=== PATIENT | male | born 1995 | race African-American/Black ===

== ENCOUNTER 2018-10-06 10:00 | Emergency (ER) | payer OTHER ==
[~2018-10-06] VITALS: Ht 170.2 cm; Wt 61.0 kg
[2018-10-06 11:07] VITALS: BP 114/70
== END 2018-10-06 12:51 | disposition home or self-care (01) ==
LOC: ER 10:00
DX: R05 Cough (principal)
CPT/HCPCS: 71045; 99283

== ENCOUNTER 2020-09-08 22:57 | Emergency (ER) | payer OTHER ==
[~2020-09-08] VITALS: Ht 170.2 cm; Wt 61.0 kg
[2020-09-09 02:18] VITALS: BP 121/60
== END 2020-09-09 02:19 | disposition home or self-care (01) ==
LOC: ER 22:57
DX: R00.2 Palpitations (principal); F12.10 Cannabis abuse, uncomplicated; K21.9 Gastro-esophageal reflux disease without esophagitis
CPT/HCPCS: 71045; 93005; 99283

== ENCOUNTER 2022-06-28 15:16 | Emergency (ER) | payer MEDICAID, OTHER ==
[~2022-06-28] VITALS: Ht 172.7 cm; Wt 75.0 kg
[2022-06-28] MEDS ORDERED: ACETAMINOPHEN 325MG TABLET PO ONE (18:45)
[2022-06-28] MEDS ORDERED: IBUPROFEN 400MG TABLET PO ONE (18:45)
[2022-06-28] MEDS ORDERED: ONDANSETRON 4MG ODT PO ONE (18:45)
[2022-06-28] MEDS ORDERED: MAGNESIUM/ALUMINUM HYDROXIDE/SIMETHICONE 30ML UDC PO ONE (18:45)
[2022-06-28 18:56] VITALS: BP 110/65
[2022-06-28] MEDS ORDERED: IBUP-2029 MT (19:58)
== END 2022-06-28 20:13 | disposition home or self-care (01) ==
LOC: ER 15:16
DX: R19.7 Diarrhea, unspecified (principal)
CPT/HCPCS: 99284; Q0162

== ENCOUNTER 2022-06-30 15:09 | Emergency (ER) | payer OTHER ==
[~2022-06-30] VITALS: Ht 170.2 cm; Wt 66.0 kg
[~2022-06-30 15:09] MED LIST: IBUP-2029 MT
[2022-06-30 21:26] LABS: HEMATOCRIT. 54.5 % (42.0-52.0); HEMOGLOBIN. 17.1 g/dL (14.0-18.0); MEAN CORPUSCULAR HEMOGLOBIN 26.8 pg (28.0-32.0); MEAN CORPUSCULAR VOLUME 85.5 fL (80.0-94.0); MEAN PLATELET VOLUME 9.7 fl (7.4-10.4); PLATELET 200 x1000/uL (130-400); RED BLOOD CELL COUNT 6.37 mill/uL (4.7-6.1); RED CELL DISTRIBUTION WIDTH 13.6 % (11.6-14.6)
[2022-06-30 21:29] LABS: CHLORIDE 97 mEq/L (98-107)
[2022-06-30 21:53] LABS: PLATELET ESTIMATE NORMAL
[2022-06-30] MEDS ORDERED: AZIT500T8 MT (22:22)
[2022-06-30 22:50] VITALS: BP 117/78
== END 2022-06-30 22:52 | disposition home or self-care (01) ==
LOC: ER 15:09
DX: K52.9 Noninfective gastroenteritis and colitis, unspecified (principal); K92.1 Melena
CPT/HCPCS: 36415; 74176; 80053; 85025; 99284

== ENCOUNTER 2023-02-08 19:38 | Emergency (ER) | payer OTHER ==
[~2023-02-08] VITALS: Ht 170.2 cm; Wt 59.1 kg
[~2023-02-08 19:38] MED LIST changes: +AZIT500T8 MT
[2023-02-08 21:25] LABS: CLARITY URINE CLEAR (CLEAR); COLOR URINE YELLOW (YELLOW); KETONES URINE NEGATIVE (NEGATIVE); LEUKOCYTE ESTERASE URINE TRACE (NEGATIVE); NITRITE URINE NEGATIVE (NEGATIVE); OCCULT BLOOD URINE NEGATIVE (NEGATIVE); PH URINE 7.5 (4.5-8.0); PROTEIN URINE NEGATIVE (NEGATIVE); SPECIFIC GRAVITY URINE 1.015 (1.005-1.030)
[2023-02-08] MEDS ORDERED: LIDO35.421 TP (21:54)
[2023-02-08] MEDS ORDERED: AZITHROMYCIN 500 MG TABLET PO ONE (22:00)
[2023-02-08] MEDS ORDERED: CEFTRIAXONE SODIUM 500 MG/VIAL IM ONE (22:00)
[2023-02-08] MEDS ORDERED: DOCU250C19 MT (22:20)
[2023-02-08 22:35] VITALS: BP 111/78
== END 2023-02-08 22:35 | disposition home or self-care (01) ==
LOC: ER 19:38
DX: K60.2 Anal fissure, unspecified (principal); Z70.8 Other sex counseling
CPT/HCPCS: 81003; 87491; 87591; 96372; 99283; J0696

== ENCOUNTER 2023-05-10 16:38 | Emergency (ER) | payer OTHER ==
[~2023-05-10] VITALS: Ht 167.6 cm; Wt 53.0 kg
[~2023-05-10 16:38] MED LIST changes: +DOCU250C19 MT; +LIDO35.421 TP
[2023-05-10 16:52] VITALS: BP 118/76; PULSE 80; RESP 16; TEMP 98.6; O2SAT 99
[2023-05-10] MEDS ORDERED: MAGNESIUM/ALUMINUM HYDROXIDE/SIMETHICONE 30ML UDC PO STA (17:29)
[2023-05-10] MEDS ORDERED: ONDANSETRON 4MG ODT PO STA (17:29)
[2023-05-10] MEDS ORDERED: PANTOPRAZOLE 40MG DR TABLET PO NR (17:45)
[2023-05-10 18:10] LABS: BASOPHILS % 0.1 % (0.0-2.0); EOSINOPHILS % 0.5 % (0.0-5.0); HEMOGLOBIN. 13.6 g/dL (14.0-18.0); LYMPHOCYTES % 16.6 % (20.0-50.0); MEAN CORPUSCULAR HEMOGLOBIN 26.8 pg (28.0-32.0); MEAN CORPUSCULAR HGB CONC 31.6 g/dL (31.0-37.0); MEAN CORPUSCULAR VOLUME 84.9 fL (80.0-94.0); MEAN PLATELET VOLUME 8.5 fl (7.4-10.4); MONOCYTES % 9.9 % (2.0-8.0); NEUTROPHILS % 72.9 % (40.0-76.0); PLATELET 206 x1000/uL (130-400); RED BLOOD CELL COUNT 5.06 mill/uL (4.7-6.1); RED CELL DISTRIBUTION WIDTH 13.3 % (11.6-14.6); WHITE BLOOD COUNT 11.3 x1000/uL (4.5-11.0)
[2023-05-10 18:27] LABS: INR 1.1; PROTHROMBIN TIME 11.4 sec (9.6-11.0)
[2023-05-10 18:28] LABS: CHLORIDE 109 mEq/L (98-107); INDEX HEMOLYSI 1 (1-3); INDEX ICTERIC 1 (1-4); INDEX LIPEMIC 1 (1-3); POTASSIUM 3.6 mEq/L (3.5-5.1); SODIUM 138 mEq/L (136-145)
[2023-05-10 18:35] LABS: ALANINE AMINOTRANSFERASE 23 IU/L (13-61); ALBUMIN 3.5 g/dL (3.4-5.0); ASPARTATE AMINOTRANSFERASE 16 IU/L (15-37); BILIRUBIN TOTAL 0.4 mg/dL (0.1-1.0); CALCIUM 8.3 mg/dL (8.5-10.1); CARBON DIOXIDE 30 mEq/L (21-32); CREATININE 1.1 mg/dL (0.6-1.3); GLUCOSE 86 mg/dL (70-105); PROTEIN TOTAL 6.6 g/dL (6.0-8.3); UREA NITROGEN BLOOD 5 mg/dL (7-21)
[2023-05-10] MEDS ORDERED: ACET-2708 MT (19:12)
[2023-05-10] MEDS ORDERED: ONDA4TAB50 MT (19:12)
[2023-05-10] MEDS ORDERED: PROT40 MT (19:12)
== END 2023-05-10 19:50 | disposition home or self-care (01) ==
LOC: ER 16:38
DX: A08.4 Viral intestinal infection, unspecified (principal); Z13.9 Encounter for screening, unspecified
CPT/HCPCS: 99284; 80053; 83690; 85025; 85610; 36415; Q0162

== ENCOUNTER 2023-05-23 09:45 | Emergency (ER) | payer OTHER ==
[~2023-05-23] VITALS: Ht 170.2 cm; Wt 56.7 kg
[~2023-05-23 09:45] MED LIST changes: +ACET-2708 MT; +ONDA4TAB50 MT; +PROT40 MT
[2023-05-23 09:50] VITALS: O2SAT 99
[2023-05-23] MEDS ORDERED: ONDANSETRON HCL 4MG/2ML INJ IV STA (10:05)
[2023-05-23] MEDS ORDERED: ACETAMINOPHEN 325MG TABLET PO STA (10:05)
[2023-05-23] MEDS ORDERED: SODIUM CHLORIDE 0.9% 1,000 ML IV ONE (10:15)
[2023-05-23 11:09] LABS: BASOPHILS % 0.2 % (0.0-2.0); EOSINOPHILS % 0.2 % (0.0-5.0); HEMATOCRIT. 46.2 % (42.0-52.0); HEMOGLOBIN. 14.8 g/dL (14.0-18.0); LYMPHOCYTES % 11.7 % (20.0-50.0); MEAN CORPUSCULAR HEMOGLOBIN 27.6 pg (28.0-32.0); MEAN CORPUSCULAR HGB CONC 32.1 g/dL (31.0-37.0); MEAN CORPUSCULAR VOLUME 85.9 fL (80.0-94.0); MEAN PLATELET VOLUME 8.6 fl (7.4-10.4); NEUTROPHILS % 77.9 % (40.0-76.0); PLATELET 222 x1000/uL (130-400); RED BLOOD CELL COUNT 5.38 mill/uL (4.7-6.1); RED CELL DISTRIBUTION WIDTH 13.8 % (11.6-14.6); WHITE BLOOD COUNT 13.5 x1000/uL (4.5-11.0)
[2023-05-23 11:35] LABS: CHLORIDE 109 mEq/L (98-107); INDEX HEMOLYSI 1 (1-3); INDEX ICTERIC 1 (1-4); INDEX LIPEMIC 1 (1-3); POTASSIUM 3.7 mEq/L (3.5-5.1); SODIUM 138 mEq/L (136-145)
[2023-05-23 11:44] LABS: ALANINE AMINOTRANSFERASE 25 IU/L (13-61); ALBUMIN 3.3 g/dL (3.4-5.0); ASPARTATE AMINOTRANSFERASE 14 IU/L (15-37); BILIRUBIN TOTAL 0.7 mg/dL (0.1-1.0); CARBON DIOXIDE 28 mEq/L (21-32); CREATININE 0.9 mg/dL (0.6-1.3); GLUCOSE 92 mg/dL (70-105); PROTEIN TOTAL 6.6 g/dL (6.0-8.3); UREA NITROGEN BLOOD 7 mg/dL (7-21)
[2023-05-23] MEDS ORDERED: ACETAMINOPHEN 325MG TABLET PO NR (15:00)
[2023-05-23] MEDS ORDERED: ONDANSETRON HCL 4MG/2ML INJ IV NR (15:00)
[2023-05-23] MEDS ORDERED: IOHEXOL-300 100 ML BOTTLE ONE (16:11)
[2023-05-23 20:54] VITALS: BP 111/60; PULSE 68; RESP 14; TEMP 98.7
== END 2023-05-23 21:04 | disposition short-term general hospital (02) ==
LOC: ER 09:45
DX: R10.12 Left upper quadrant pain (principal); R11.2 Nausea with vomiting, unspecified; K21.9 Gastro-esophageal reflux disease without esophagitis
CPT/HCPCS: 80053; 83690; 85025; 36415; 74177; 96361; 96374; 99285; Q9967; J2405; J7030; Z7610 ×2

== ENCOUNTER 2023-10-15 13:22 | Emergency (ER) | payer OTHER ==
[~2023-10-15] VITALS: Ht 170.2 cm; Wt 62.0 kg
[2023-10-15 13:28] VITALS: O2SAT 99
[2023-10-15] MEDS ORDERED: SODIUM CHLORIDE 0.9% 500 ML IV ONE (15:00)
[2023-10-15 15:35] LABS: BASOPHILS % 0.2 % (0.0-2.0); EOSINOPHILS % 0.9 % (0.0-5.0); HEMATOCRIT. 50.3 % (42.0-52.0); HEMOGLOBIN. 16.2 g/dL (14.0-18.0); LYMPHOCYTES % 23.3 % (20.0-50.0); MEAN CORPUSCULAR HEMOGLOBIN 27.5 pg (28.0-32.0); MEAN CORPUSCULAR HGB CONC 32.2 g/dL (31.0-37.0); MEAN CORPUSCULAR VOLUME 85.6 fL (80.0-94.0); MEAN PLATELET VOLUME 9.4 fl (7.4-10.4); MONOCYTES % 12.8 % (2.0-8.0); NEUTROPHILS % 62.8 % (40.0-76.0); PLATELET 203 x1000/uL (130-400); RED BLOOD CELL COUNT 5.88 mill/uL (4.7-6.1); RED CELL DISTRIBUTION WIDTH 13.9 % (11.6-14.6); WHITE BLOOD COUNT 9.3 x1000/uL (4.5-11.0)
[2023-10-15 15:51] LABS: ALANINE AMINOTRANSFERASE 20 IU/L (10-49); ALBUMIN 5.1 g/dL (3.2-4.8); ASPARTATE AMINOTRANSFERASE 38 IU/L (<34); BILIRUBIN TOTAL 0.7 mg/dL (0.1-1.0); CALCIUM 9.7 mg/dL (8.7-10.4); CARBON DIOXIDE 21 mEq/L (21-32); CHLORIDE 104 mEq/L (98-107); CREATININE 0.9 mg/dL (0.6-1.3); GLUCOSE 78 mg/dL (70-105); POTASSIUM 3.4 mEq/L (3.5-5.1); PROTEIN TOTAL 8.4 g/dL (6.0-8.3); SODIUM 135 mEq/L (136-145); UREA NITROGEN BLOOD 6 mg/dL (9-23)
[2023-10-15 17:05] VITALS: BP 130/93; PULSE 94; RESP 12; TEMP 98.4
== END 2023-10-15 17:15 | disposition home or self-care (01) ==
LOC: ER 13:30
DX: K52.89 Other specified noninfective gastroenteritis and colitis (principal); K21.9 Gastro-esophageal reflux disease without esophagitis
CPT/HCPCS: 80053; 85025; 36415; 96360; 99283; Z7610

== ENCOUNTER 2024-10-23 11:46 | Emergency (ER) | payer OTHER ==
[~2024-10-23] VITALS: Ht 170.2 cm; Wt 59.0 kg
[2024-10-23 11:54] VITALS: PULSE 78; O2SAT 98
[2024-10-23 12:23] VITALS: BP 112/63; RESP 16; TEMP 37.1
[2024-10-23] MEDS ORDERED: DOXY100C5 MT (14:10)
[2024-10-23] MEDS: CEFTRIAXONE SODIUM 500MG VIAL IM ONE (14:20)
[2024-10-23] MEDS: LIDOCAINE HCL 1% 20ML VIAL INFIL ONE (14:20)
== END 2024-10-23 14:34 | disposition home or self-care (01) ==
LOC: ER 11:46
DX: N34.2 Other urethritis (principal); K21.9 Gastro-esophageal reflux disease without esophagitis; Z79.899 Other long term (current) drug therapy
CPT/HCPCS: 99283; 96372; J0696; J3490